=== PATIENT | male | born 1985 | race Caucasian/White ===

== ENCOUNTER 2016-09-03 04:22 | Emergency (ER) | payer OTHER ==
[~2016-09-03] VITALS: Ht 185.4 cm; Wt 95.2 kg
[~2016-09-03 04:22] MED LIST: NAPROSYN500 MG PO; PENICILLN VK500 MG PO
[2016-09-03 04:42] VITALS: BP 142/69
[2016-09-03] MEDS ORDERED: AMOXICILLIN500 MG PO (04:50)
[2016-09-03] MEDS ORDERED: PERCOCET 5/325M1 TAB PO (04:50)
== END 2016-09-03 05:22 | disposition home or self-care (01) | DRG 159 ==
LOC: ED 04:22
DX: K02.9 Dental caries, unspecified (principal); F17.210 Nicotine dependence, cigarettes, uncomplicated

== ENCOUNTER 2019-03-19 12:03 | Emergency (ER) | payer SELFPAY ==
[~2019-03-19] VITALS: Ht 185.4 cm; Wt 100.0 kg
[~2019-03-19 12:03] MED LIST changes: +AMOXICILLIN500 MG PO; +PERCOCET 5/325M1 TAB PO
[2019-03-19] MEDS ORDERED: SULFACET SOD10 % OS (12:43)
[2019-03-19 12:45] VITALS: BP 140/87
== END 2019-03-19 12:45 | disposition home or self-care (01) | DRG 125 ==
LOC: ED 12:03
DX: S05.02XA Injury of conjunctiva and corneal abrasion without foreign body, left eye, initial encounter (principal); X58.XXXA Exposure to other specified factors, initial encounter; Y93.H2 Activity, gardening and landscaping

== ENCOUNTER 2019-06-12 | Emergency (ER) | payer SELFPAY ==
[~2019-06-12] MED LIST changes: +SULFACET SOD10 % OS
[2019-06-12] MEDS ORDERED: AMOXICILLIN500 MG PO (20:22)
[2019-06-12] MEDS ORDERED: PERCOCET 5/325M1 TAB PO (20:22)
== END 2019-06-12 20:45 | disposition home or self-care (01) | DRG 544 ==
DX: M84.68XA Pathological fracture in other disease, other site, initial encounter for fracture (principal); K02.9 Dental caries, unspecified

== ENCOUNTER 2019-06-13 | Emergency (ER) | payer SELFPAY | END 2019-06-13 06:22 | disposition home or self-care (01) | DRG 159 | DX: K02.9 Dental caries, unspecified (principal) ==

== ENCOUNTER 2020-06-19 01:26 | Emergency (ER) | payer SELFPAY ==
[~2020-06-19] VITALS: Ht 185.4 cm; Wt 100.0 kg
[2020-06-19 01:29] VITALS: BP 156/87
[2020-06-19] MEDS ORDERED: TRAMADOL HYDROC50 MG PO (01:43)
[2020-06-19] MEDS ORDERED: VOLTAREN75 MG PO (01:43)
[2020-06-19] MEDS ORDERED: AMOXICILLIN500 MG PO (01:43)
== END 2020-06-19 01:57 | disposition home or self-care (01) | DRG 159 ==
LOC: ED 01:26
DX: K02.9 Dental caries, unspecified (principal)

== ENCOUNTER 2020-09-22 22:31 | Emergency (ER) | payer SELFPAY ==
[~2020-09-22 22:31] MED LIST changes: +TRAMADOL HYDROC50 MG PO; +VOLTAREN75 MG PO
[2020-09-22 23:50] VITALS: BP 129/80
== END 2020-09-22 23:50 | disposition home or self-care (01) | DRG 563 ==
LOC: ED 22:31
PROC: 2W3CX1Z Immobilization of Right Lower Arm using Splint (ICD-10-PCS; principal; 2020-09-22)
DX: S63.501A Unspecified sprain of right wrist, initial encounter (principal); X50.0XXA Overexertion from strenuous movement or load, initial encounter; Y93.H2 Activity, gardening and landscaping; Y92.007 Garden or yard of unspecified non-institutional (private) residence as the place of occurrence of the external cause

== ENCOUNTER 2021-04-09 15:21 | Emergency (ER) | payer SELFPAY ==
[~2021-04-09] VITALS: Ht 185.4 cm; Wt 105.0 kg
[2021-04-09] MEDS ORDERED: HYDROCO/APAP1 TA9 PO (16:15)
[2021-04-09 16:30] VITALS: BP 154/71
== END 2021-04-09 16:30 | disposition home or self-care (01) | DRG 159 ==
LOC: ED 15:21
DX: K08.89 Other specified disorders of teeth and supporting structures (principal)

== ENCOUNTER 2022-01-09 16:54 | Emergency (ER) | payer SELFPAY ==
[~2022-01-09 16:54] MED LIST changes: +HYDROCO/APAP1 TA9 PO
== END 2022-01-09 17:33 | disposition left against medical advice (07) | DRG 951 ==
LOC: ED 16:54 → LWOBS 17:33
DX: Z53.21 Procedure and treatment not carried out due to patient leaving prior to being seen by health care provider (principal)

== ENCOUNTER 2022-01-26 05:36 | Emergency (ER) | payer SELFPAY ==
[~2022-01-26] VITALS: Ht 185.4 cm; Wt 98.0 kg
[2022-01-26] MEDS ORDERED: AMOXICILLIN500 MG PO (06:09)
[2022-01-26] MEDS ORDERED: VOLTAREN75 MG PO (06:09)
[2022-01-26 06:28] VITALS: BP 133/90
== END 2022-01-26 06:30 | disposition home or self-care (01) | DRG 159 ==
LOC: ED 05:36
DX: K02.9 Dental caries, unspecified (principal); Z97.2 Presence of dental prosthetic device (complete) (partial)

== ENCOUNTER 2023-06-21 08:15 | Emergency (ER) | payer SELFPAY ==
[2023-06-21] VITALS (8 sets, daily range): BP systolic 111–132; BP diastolic 70–87
[~2023-06-21] VITALS: Ht 185.4 cm; Wt 103.8 kg
[2023-06-21 09:03] LABS: BASO% 0.9 % (0-3); EOS% 2.9 % (0-8); HEMATOCRIT 46.2 % (39.0-50.0); HEMOGLOBIN 15.4 g/dl (14.0-18.0); IMMATURE GRANULOCYTES 0.4 % (0.0-5.0); LYMPH% 14.7 % (15-41); MEAN CELL VOLUME 90.8 fL CALC (80.0-100.0); MEAN CORPUSCULAR HGB 30.3 pG CALC (26.0-32.0); MEAN CORPUSCULAR HGB CONC 33.3 g/dL CAL (32.0-36.0); MONO% 9.8 % (2-13); NEUT# 5.32 thou/uL (1.82-7.42); NEUT% 71.3 % (42-76); RED BLOOD COUNT 5.09 mill/uL (4.70-6.10); RED CELL DISTRI WIDTH 12.7 % (11.5-15.5)
[2023-06-21 09:16] LABS: ALBUMIN 4.2 g/dL (3.2-5.0); ANION GAP 13 (6-22 (CALC)); BILIRUBIN, TOTAL 0.6 mg/dL (0.2-1.3); BUN 17 mg/dL (9-20); BUN/CREATININE RATIO 18 (12-20 (CALC)); CARBON DIOXIDE 21 mmol/l (22-30); CHLORIDE 109 mmol/l (95-108); CREATININE 0.9 mg/dL (0.7-1.3); GFR FOR AFR.AMER. > 60 ML/MIN (>=60 (CALC)); GFR OTHER RACES > 60 ML/MIN (>=60 (CALC)); POTASSIUM 4.4 mmol/l (3.5-5.1); SGOT/AST 21 u/l (17-59); SODIUM 139 mmol/l (137-146)
[2023-06-21 09:35] LABS: ALKALINE PHOSPHATASE 63 u/l (38-126)
[2023-06-21] MEDS ORDERED: AMOX/K CLAV875 M1 PO (09:44)
== END 2023-06-21 10:00 | disposition home or self-care (01) | DRG 153 ==
LOC: ED 08:15
PROVIDERS: Family Medicine
DX: J06.9 Acute upper respiratory infection, unspecified (principal); Z20.822 Contact with and (suspected) exposure to COVID-19